=== PATIENT | male | born 1990 | race Hispanic/Latino ===

== ENCOUNTER 2018-12-19 12:24 | Emergency (ER) | payer SELFPAY ==
[2018-12-19] MEDS ORDERED: Adacel (T-DAP) 0.5 ML SYRINGE ONE (12:53)
[2018-12-19] MEDS ORDERED: Lidocaine 1% w/Epinephrine 1:100K 20 ML VIAL ONE (13:15)
[2018-12-19] MEDS ORDERED: Bacitracin 1 PK ONE (13:40)
== END 2018-12-19 14:10 | disposition home or self-care (01) ==
LOC: ERS 12:24
DX: S51.811A Laceration without foreign body of right forearm, initial encounter (principal); S60.410A Abrasion of right index finger, initial encounter; S60.414A Abrasion of right ring finger, initial encounter; Z71.6 Tobacco abuse counseling; F17.210 Nicotine dependence, cigarettes, uncomplicated; W25.XXXA Contact with sharp glass, initial encounter
CPT/HCPCS: 12002; 90471; 90715; 99406; J2001